=== PATIENT | female | born 1965 | race Caucasian/White ===

== ENCOUNTER → 2025-02-22 14:10 | Outpatient (REF) | payer MEDICARE, OTHER, SELFPAY | LOC: WDC 14:10 | PROVIDERS: ATTENDING PHYSICIAN Physician Assistant Medical | DX: Z12.31 Encounter for screening mammogram for malignant neoplasm of breast (principal) | CPT/HCPCS: 77063; 77067 ==

== ENCOUNTER → 2025-04-04 09:59 | Outpatient (REF) | payer MEDICARE, OTHER, SELFPAY | LOC: WDC 09:59 | PROVIDERS: ATTENDING PHYSICIAN Physician Assistant Medical; FAMILY PHYSICIAN Obstetrics & Gynecology Gynecology | DX: R92.2 Inconclusive mammogram (principal) | CPT/HCPCS: 76641 ==

== ENCOUNTER → 2025-07-29 13:32 | Outpatient (REF) | payer MEDICARE, OTHER, SELFPAY | LOC: RAD 13:32 | PROVIDERS: ATTENDING PHYSICIAN Physician Assistant Surgical; FAMILY PHYSICIAN Family Medicine | DX: M54.17 Radiculopathy, lumbosacral region (principal) | CPT/HCPCS: 72192 ==